=== PATIENT | female | born 1990 | race Asian ===

== ENCOUNTER 2022-04-30 11:58 | Emergency (ER) | payer MEDICAID ==
[~2022-04-30] VITALS: Ht 172.7 cm; Wt 79.0 kg
[2022-04-30 12:33] VITALS: BP 117/77
[2022-04-30 16:56] LABS: BASOPHILS % 0.3 % (0.0-2.0); EOSINOPHILS % 1.5 % (0.0-5.0); HEMATOCRIT. 37.4 % (36.0-48.0); HEMOGLOBIN. 12.9 g/dL (12.0-16.0); LYMPHOCYTES % 32.7 % (20.0-50.0); MEAN CORPUSCULAR HEMOGLOBIN 29.5 pg (28.0-32.0); MEAN CORPUSCULAR VOLUME 85.6 fL (81.0-99.0); MEAN PLATELET VOLUME 7.5 fl (7.4-10.4); MONOCYTES % 7.4 % (2.0-8.0); NEUTROPHILS % 58.1 % (40.0-76.0); PLATELET 336 x1000/uL (130-400); RED BLOOD CELL COUNT 4.37 mill/uL (4.2-5.4); RED CELL DISTRIBUTION WIDTH 13.8 % (11.6-14.6)
[2022-04-30 17:05] LABS: HCG SCREEN NEGATIVE
[2022-04-30 17:10] LABS: CHLORIDE 105 mEq/L (98-107)
== END 2022-04-30 18:19 | disposition home or self-care (01) ==
LOC: ER 11:58
DX: R22.1 Localized swelling, mass and lump, neck (principal)
CPT/HCPCS: 36415; 70360; 71046; 80053; 84443; 84703; 85025; 99284